=== PATIENT | male | born 1955 | race Caucasian/White ===

== ENCOUNTER 2017-01-06 11:57 | Day surgery (SDC) | payer OTHER ==
[~2017-01-06] VITALS: Ht 175.3 cm; Wt 81.7 kg
[~2017-01-06 11:57] MED LIST: ADVIL,NUPRIN,M200 MG PO; SUBOXONE 8 MG-1 EAC2 SL; TYLENOL EXTRA500 MG PO
== END 2017-01-06 14:00 | disposition home or self-care (01) ==
LOC: PAIN 11:57 → SDC 12:30 → PAIN 14:00
PROC: 3E0S33Z Introduction of Anti-inflammatory into Epidural Space, Percutaneous Approach (ICD-10-PCS; principal; 2017-01-06)
DX: M54.16 Radiculopathy, lumbar region (principal); F41.9 Anxiety disorder, unspecified; M96.1 Postlaminectomy syndrome, not elsewhere classified; M47.816 Spondylosis without myelopathy or radiculopathy, lumbar region; M79.1 Myalgia; F17.200 Nicotine dependence, unspecified, uncomplicated; Z87.898 Personal history of other specified conditions; F11.20 Opioid dependence, uncomplicated
CPT/HCPCS: J1100; J2250; J3010

== ENCOUNTER 2017-02-17 10:03 | Day surgery (SDC) | payer OTHER ==
[~2017-02-17] VITALS: Ht 175.3 cm; Wt 83.9 kg
== END 2017-02-17 11:55 | disposition home or self-care (01) ==
LOC: PAIN 10:03 → SDC 10:30 → PAIN 11:55
PROC: 3E0S33Z Introduction of Anti-inflammatory into Epidural Space, Percutaneous Approach (ICD-10-PCS; principal; 2017-02-17)
DX: M54.16 Radiculopathy, lumbar region (principal); F41.9 Anxiety disorder, unspecified; M96.1 Postlaminectomy syndrome, not elsewhere classified; M79.1 Myalgia; Z79.891 Long term (current) use of opiate analgesic; F17.200 Nicotine dependence, unspecified, uncomplicated
CPT/HCPCS: J1100; J2250; J3010

== ENCOUNTER 2017-09-22 17:22 | Observation (INO) | payer OTHER ==
[~2017-09-22] VITALS: Ht 177.8 cm; Wt 83.7 kg
[2017-09-22 18:05] LABS: HEMATOCRIT 50.3 % (38.0-50.0); MCH 34.5 PG (29.0-34.0); MCHC 36.2 G/DL (30.0-36.0); MCV 95.4 FL (86-99); MEAN PLAT.VOLUME 10.9 uM^3 (9.0-12.4); PLATELET COUNT 208 K/uL (156-360); RBC DIS.WIDTH-CV 12.6 % (11.8-14.6); RBC DIS.WIDTH-SD 44.8 % (39-53); RED BLOOD COUNT 5.27 M/uL (4.00-5.50)
[2017-09-22 18:13] LABS: CHLORIDE 92 mEq/L (99-109); SODIUM 133 mEq/L (136-147)
[2017-09-22 18:15] LABS: GLUCOSE 262 mg/dL (70-99)
[2017-09-22 18:17] LABS: ANION GAP 20 MEQ/L (2-14)
[2017-09-22 18:19] LABS: GFR ESTIMATE (CALCULATED) 38 mL/min/
[2017-09-22 18:20] LABS: UREA NITROGEN (BUN) 26 mg/dL (9-23)
[2017-09-22 18:22] LABS: CREATINE KINASE 870 IU/L (1-294)
[2017-09-22 20:28] LABS: ADD MIUA? YES; BILIRUBIN NEGATIVE; BLOOD NEGATIVE; COLOR AMBER ((YELLOW)); GLUCOSE (STRIP) NEGATIVE; KETONES NEGATIVE; LEUKOCYTES TRACE; NITRITE NEGATIVE; PROTEIN (STRIP) NEGATIVE; SPECIFIC GRAVITY 1.014 (1.000-1.030); UROBILINOGEN 0.2 MG/DL (0.2-1.0)
[2017-09-22 20:37] LABS: BACTERIA RARE /HPF; EPITHELIAL CELLS RARE /HPF; HYALINE CASTS TNTC /LPF; MUCUS 1+ /LPF; RED BLOOD CELLS 0-5 /HPF (0-5); UCUL ADDED? NO; WHITE BLOOD CELLS 0-5 /HPF (0-5)
[2017-09-22 21:36] LABS: CHLORIDE 97 mEq/L (99-109); SODIUM 134 mEq/L (136-147)
[2017-09-22 21:37] LABS: GLUCOSE 179 mg/dL (70-99)
[2017-09-22 21:38] LABS: POTASSIUM 4.1 mEq/L (3.7-5.4)
[2017-09-22 21:39] LABS: ANION GAP 13 MEQ/L (2-14)
[2017-09-22 21:41] LABS: GFR ESTIMATE (CALCULATED) 50 mL/min/
[2017-09-22 21:42] LABS: UREA NITROGEN (BUN) 25 mg/dL (9-23)
[2017-09-22 21:44] LABS: CREATINE KINASE 989 IU/L (1-294)
[2017-09-22] MEDS ORDERED: SUBOXONE 8 MG-1 EAC2 SL (22:19)
[2017-09-22] MEDS ORDERED: TIZANIDINE HCL2 MG PO (22:20)
[2017-09-22 23:05] LABS: TOTAL BILIRUBIN 1.2 mg/dL (0.0-1.0)
[2017-09-22 23:06] LABS: ALKALINE PHOSPHATASE 97 IU/L (3-129)
[2017-09-22 23:09] LABS: DIRECT BILIRUBIN 0.5 mg/dL (0.0-0.3)
[2017-09-22 23:21] LABS: INTERNAL CONTROL VALID? YES; MONOSPOT (MONONUCLEOSIS SEROL) NEGATIVE
[2017-09-22 23:39] LABS: INFLUENZA A VIRAL ANTIGEN NEGATIVE; INFLUENZA B VIRAL ANTIGEN NEGATIVE
[2017-09-23 00:16] LABS: MAGNESIUM 1.5 mg/dL (1.3-2.7)
[2017-09-23 00:23] LABS: URIC ACID 10.4 mg/dL (3.1-9.2)
[2017-09-23 00:30] VITALS: BP 133/79
[2017-09-23 01:21] LABS: C-REACTIVE PROTEIN 2.3 MG/L (0-10); SAMPLE HEMOLYSIS CHECK 0; SAMPLE ICTERIC CHECK 0; SAMPLE LIPEMIA CHECK 0
[2017-09-23 04:34] LABS: UR CREATININE CONCENTRATION 47.9 MG/DL
[2017-09-23 06:15] LABS: ALKALINE PHOSPHATASE 80 IU/L (3-129); ANION GAP 8 MEQ/L (2-14); CHLORIDE 97 MEQ/L (99-109); GFR ESTIMATE (CALCULATED) > 59 mL/min/; GLUCOSE 136 mg/dL (70-99); POTASSIUM 3.9 MEQ/L (3.7-5.4); SAMPLE HEMOLYSIS CHECK 0; SAMPLE ICTERIC CHECK 0; SAMPLE LIPEMIA CHECK 0; SODIUM 136 MEQ/L (136-147); TOTAL BILIRUBIN 1.2 MG/DL (0.0-1.0); UREA NITROGEN (BUN) 22 mg/dL (9-23)
[2017-09-23 06:16] LABS: MAGNESIUM 1.8 mg/dl (1.3-2.7)
[2017-09-23 07:22] VITALS: BP 116/75
[2017-09-23 11:54] VITALS: BP 106/60
[2017-09-23 12:40] LABS: POINT-OF-CARE METER ID UU13113831
[2017-09-23 12:48] LABS: ANION GAP 6 MEQ/L (2-14); CHLORIDE 99 MEQ/L (99-109); GFR ESTIMATE (CALCULATED) > 59 mL/min/; GLUCOSE 128 mg/dL (70-99); SAMPLE HEMOLYSIS CHECK 0; SAMPLE ICTERIC CHECK 0; SAMPLE LIPEMIA CHECK 0; SODIUM 136 MEQ/L (136-147); UREA NITROGEN (BUN) 21 mg/dL (9-23)
[2017-09-23 12:52] LABS: POTASSIUM 4.9 MEQ/L (3.7-5.4)
[2017-09-23 13:29] LABS: Estimated Average Glucose 114 mg/dL (70-123); HEMOGLOBIN A1c (GLYCOHEMOGLOB) 5.6 % HGB (Below 5.7)
[2017-09-23 14:01] LABS: AMPHETAMINES QUANT VALUE 0 NG/ML; BARBITUATES QUANT VALUE 0 NG/ML; BENZODIAZEPINES, URINE SCREEN POSITIVE (200 ng/mL); MARIJUANA QUANT VALUE 0 NG/ML; OPIATES QUANTITATIVE VALUE 0 NG/ML; PHENCYCLIDINE QUANT VALUE 0 NG/ML
== END 2017-09-23 14:03 | disposition home or self-care (01) ==
LOC: EME 17:22 → EDOF 23:08 → ENRESERV 23:09 → 5WEST 09-23 00:28
PROVIDERS: Hospitalist; Physician Assistant; Physician Assistant Medical
DX: M62.82 Rhabdomyolysis (principal); M60.9 Myositis, unspecified; N17.9 Acute kidney failure, unspecified; R73.9 Hyperglycemia, unspecified; Z86.19 Personal history of other infectious and parasitic diseases; F11.20 Opioid dependence, uncomplicated; F17.210 Nicotine dependence, cigarettes, uncomplicated; E86.0 Dehydration; E87.5 Hyperkalemia; E87.6 Hypokalemia; E87.1 Hypo-osmolality and hyponatremia; G89.29 Other chronic pain; M54.12 Radiculopathy, cervical region; M54.16 Radiculopathy, lumbar region
CPT/HCPCS: 76705; 80048; 80048 91; 80053; 80076; 80306 90; 81003; 82436; 82550; 82550 91; 82570; 82575; 82948; 83036; 83735; 83930; 83935; 84100; 84133; 84300; 84550; 85027; 85651; 86140; 86308; 87502; 99281; 99285; G0378; G0480; J0574; J1100; J1650; J3480; J7030

== ENCOUNTER 2017-09-27 12:35 | Observation (INO) | payer OTHER ==
[~2017-09-27] VITALS: Ht 177.8 cm; Wt 85.9 kg
[~2017-09-27 12:35] MED LIST changes: +TIZANIDINE HCL2 MG PO
[2017-09-27 13:53] LABS: BASOPHIL COUNT 0.1 K/uL (0-0.1); EOSINOPHIL (%) 2.6 % (0-5); EOSINOPHIL COUNT 0.2 K/uL (0-0.3); HEMATOCRIT 45.6 % (38.0-50.0); IMMATURE GRANULOCYTE (%) 0.5 % (0.0-0.7); INSTRUMENT ABS NEUTROPHIL CT 4.8 K/uL; LYMPHOCYTE COUNT 2.6 K/uL (1.0-2.8); MCHC 34.9 G/DL (30.0-36.0); MCV 97.4 FL (86-99); MEAN PLAT.VOLUME 10.5 uM^3 (9.0-12.4); MONOCYTE (%) 6.6 % (3-12); MONOCYTE COUNT 0.5 K/uL (0-0.8); NEUTROPHIL (%) 58.2 % (45-76); NEUTROPHIL COUNT 4.8 K/uL (1.8-6.4); PLATELET COUNT 165 K/uL (156-360); RBC DIS.WIDTH-CV 12.5 % (11.8-14.6); RBC DIS.WIDTH-SD 44.5 % (39-53); RED BLOOD COUNT 4.68 M/uL (4.00-5.50); WHITE BLOOD COUNT 8.2 K/uL (4.1-10.2)
[2017-09-27 14:10] LABS: CHLORIDE 97 mEq/L (99-109); POTASSIUM 3.8 mEq/L (3.7-5.4); SODIUM 135 mEq/L (136-147)
[2017-09-27 14:11] LABS: INTER. NORMALIZED RATIO 1.1; PROTHROMBIN TIME 12.5 SEC (10.2-12.9)
[2017-09-27 14:12] LABS: GLUCOSE 108 mg/dL (70-99)
[2017-09-27 14:13] LABS: ANION GAP 9 MEQ/L (2-14)
[2017-09-27 14:14] LABS: PTT 27.9 SEC (25-37); TOTAL BILIRUBIN 1.1 mg/dL (0.0-1.0)
[2017-09-27 14:16] LABS: ALKALINE PHOSPHATASE 100 IU/L (3-129); GFR ESTIMATE (CALCULATED) > 59 mL/min/
[2017-09-27 14:17] LABS: UREA NITROGEN (BUN) 19 mg/dL (9-23)
[2017-09-27 14:20] LABS: CREATINE KINASE 2333 IU/L (1-294)
[2017-09-27 19:56] VITALS: BP 125/79
[2017-09-27 23:15] VITALS: BP 112/55
[2017-09-28 03:01] VITALS: BP 114/67
[2017-09-28 05:38] LABS: HEMATOCRIT 39.4 % (38.0-50.0); MCH 33.2 PG (29.0-34.0); MCHC 33.2 G/DL (30.0-36.0); MCV 99.7 FL (86-99); MEAN PLAT.VOLUME 10.5 uM^3 (9.0-12.4); PLATELET COUNT 137 K/uL (156-360); RBC DIS.WIDTH-CV 12.8 % (11.8-14.6); RBC DIS.WIDTH-SD 47.6 % (39-53); RED BLOOD COUNT 3.95 M/uL (4.00-5.50); WHITE BLOOD COUNT 6.9 K/uL (4.1-10.2)
[2017-09-28 06:05] LABS: ALKALINE PHOSPHATASE 64 IU/L (3-129); ANION GAP 4 MEQ/L (2-14); CHLORIDE 104 MEQ/L (99-109); GFR ESTIMATE (CALCULATED) > 59 mL/min/; GLUCOSE 89 mg/dL (70-99); POTASSIUM 4.1 MEQ/L (3.7-5.4); SAMPLE HEMOLYSIS CHECK 0; SAMPLE ICTERIC CHECK 0; SAMPLE LIPEMIA CHECK 0; SODIUM 140 MEQ/L (136-147); TOTAL BILIRUBIN 1.1 MG/DL (0.0-1.0); UREA NITROGEN (BUN) 17 mg/dL (9-23)
[2017-09-28 08:12] VITALS: BP 122/71
== END 2017-09-28 09:56 | disposition home or self-care (01) ==
LOC: EME 12:35 → 5WEST 15:44 → EDOF 15:44 → ENRESERV 16:14 → 5WEST 19:42
PROVIDERS: Emergency Medicine; Hospitalist
DX: M62.82 Rhabdomyolysis (principal); R74.0 Nonspecific elevation of levels of transaminase and lactic acid dehydrogenase [LDH]; G89.4 Chronic pain syndrome; Z86.19 Personal history of other infectious and parasitic diseases; F17.210 Nicotine dependence, cigarettes, uncomplicated; F19.11 Other psychoactive substance abuse, in remission; Z82.49 Family history of ischemic heart disease and other diseases of the circulatory system; Z82.5 Family history of asthma and other chronic lower respiratory diseases
CPT/HCPCS: 76705; 80053; 82550; 82550 91; 85025; 85027; 85610; 85730; 93005; 99281; 99285; G0378; J0574; J7030; J7040

== ENCOUNTER 2018-01-10 14:46 | Observation (INO) | payer OTHER ==
[~2018-01-10] VITALS: Ht 177.8 cm; Wt 86.0 kg
[2018-01-10 15:46] LABS: HEMATOCRIT 52.7 % (38.0-50.0); HEMOGLOBIN 19.2 G/DL (12.5-16.6); MCH 33.9 PG (29.0-34.0); MCHC 36.4 G/DL (30.0-36.0); MCV 93.1 FL (86-99); PLATELET COUNT 232 K/uL (156-360); RBC DIS.WIDTH-CV 12.2 % (11.8-14.6); RBC DIS.WIDTH-SD 42.2 % (39-53); RED BLOOD COUNT 5.66 M/uL (4.00-5.50); WHITE BLOOD COUNT 9.7 K/uL (4.1-10.2)
[2018-01-10 15:57] LABS: ALBUMIN 4.9 g/dL (3.2-4.8); CHLORIDE 90 mEq/L (99-109); POTASSIUM 3.8 mEq/L (3.7-5.4); SODIUM 134 mEq/L (136-147)
[2018-01-10 15:59] LABS: GLUCOSE 147 mg/dL (70-99); TOTAL PROTEIN 9.4 g/dL (6.4-8.3)
[2018-01-10 16:01] LABS: TOTAL BILIRUBIN 2.1 mg/dL (0.0-1.0)
[2018-01-10 16:03] LABS: ALKALINE PHOSPHATASE 122 IU/L (3-129); CREATININE 1.6 mg/dL (0.6-1.3); GFR ESTIMATE (CALCULATED) 46 mL/min/ (58.99-99999)
[2018-01-10 16:04] LABS: UREA NITROGEN (BUN) 33 mg/dL (9-23)
[2018-01-10 16:05] LABS: AST (GOT) 152 IU/L (2-34)
[2018-01-10 16:06] LABS: ALT (GPT) 137 IU/L (3-49)
[2018-01-10 16:07] LABS: TROP-I INTERPRETATION NEGATIVE; TROPONIN-I < 0.01 ng/mL (0.0-0.30)
[2018-01-10 17:08] LABS: CREATINE KINASE 184 IU/L (1-294); MAGNESIUM 1.7 mg/dl (1.3-2.7); PHOSPHORUS 1.4 mg/dL (2.5-4.9)
[2018-01-10 17:22] LABS: APPEARANCE CLEAR ((CLEAR)); BILIRUBIN NEGATIVE; BLOOD NEGATIVE; COLOR YELLOW ((YELLOW)); GLUCOSE (STRIP) NEGATIVE; KETONES NEGATIVE; LEUKOCYTES NEGATIVE; NITRITE NEGATIVE; PROTEIN (STRIP) NEGATIVE; SPECIFIC GRAVITY 1.008 (1.000-1.030); UCUL ADDED? NO; UROBILINOGEN 0.2 MG/DL (0.2-1.0)
[2018-01-10] MEDS ORDERED: TYLENOL EXTRA500 MG PO (18:23)
[2018-01-10] MEDS ORDERED: SALONPAS GEL-P1 EAC1 TD (18:24)
[2018-01-10 20:47] LABS: INTACT PARATHYROID HORMONE 158 pg/mL (10-69)
[2018-01-10 21:04] VITALS: BP 114/73
[2018-01-10 23:48] VITALS: BP 110/71
[2018-01-11 03:21] LABS: CHLORIDE 96 mEq/L (99-109); POTASSIUM 3.9 mEq/L (3.7-5.4); SODIUM 136 mEq/L (136-147)
[2018-01-11 03:22] LABS: MAGNESIUM 1.7 mg/dL (1.3-2.7)
[2018-01-11 03:23] LABS: GLUCOSE 114 mg/dL (70-99)
[2018-01-11 03:27] LABS: PHOSPHORUS 4.6 mg/dL (2.5-4.9)
[2018-01-11 03:28] LABS: CREATININE 1.1 mg/dL (0.6-1.3); GFR ESTIMATE (CALCULATED) > 59 mL/min/ (58.99-99999); UREA NITROGEN (BUN) 27 mg/dL (9-23)
[2018-01-11 03:32] VITALS: BP 108/54
[2018-01-11 05:28] LABS: BENZODIAZEPINES, URINE SCREEN POSITIVE (200 ng/mL)
[2018-01-11 06:21] LABS: HEMATOCRIT 43.8 % (38.0-50.0); MCH 33.1 PG (29.0-34.0); MCHC 34.2 G/DL (30.0-36.0); MCV 96.7 FL (86-99); RBC DIS.WIDTH-CV 12.5 % (11.8-14.6); RBC DIS.WIDTH-SD 44.6 % (39-53); WHITE BLOOD COUNT 10.2 K/uL (4.1-10.2)
[2018-01-11 06:35] LABS: ALBUMIN 3.5 G/DL (3.2-4.8); ALKALINE PHOSPHATASE 72 IU/L (3-129); ALT (GPT) 73 IU/L (3-49); AST (GOT) 75 IU/L (2-34); CHLORIDE 97 MEQ/L (99-109); DIRECT BILIRUBIN 0.6 mg/dL (0.0-0.3); GFR ESTIMATE (CALCULATED) > 59 mL/min/ (58.99-99999); GLUCOSE 110 mg/dL (70-99); POTASSIUM 3.5 MEQ/L (3.7-5.4); SODIUM 137 MEQ/L (136-147); TOTAL BILIRUBIN 1.5 MG/DL (0.0-1.0); TOTAL PROTEIN 5.9 G/DL (6.4-8.3); UREA NITROGEN (BUN) 26 mg/dL (9-23)
[2018-01-11 07:05] LABS: PLATELET COUNT 159 K/uL (156-360); RED BLOOD COUNT 4.53 M/uL (4.00-5.50)
[2018-01-11 07:22] LABS: PLAT.SUFFICIENCY DECREASED
[2018-01-11 08:00] VITALS: BP 104/69
[2018-01-11 11:43] VITALS: BP 111/64
== END 2018-01-11 14:19 | disposition home or self-care (01) ==
LOC: EME 14:46 → 5SOUTH 18:46 → EDOF 18:46 → 5SOUTH 18:46 → ENRESERV 18:51 → 5SOUTH 20:53
PROVIDERS: Emergency Medicine; Hospitalist; Physician Assistant
DX: E86.0 Dehydration (principal); E87.6 Hypokalemia; E83.52 Hypercalcemia; E83.39 Other disorders of phosphorus metabolism; N17.9 Acute kidney failure, unspecified; G89.4 Chronic pain syndrome; B18.2 Chronic viral hepatitis C; R79.89 Other specified abnormal findings of blood chemistry; G62.9 Polyneuropathy, unspecified; M47.9 Spondylosis, unspecified; D75.1 Secondary polycythemia; F17.200 Nicotine dependence, unspecified, uncomplicated
CPT/HCPCS: 74176; 80048; 80048 91; 80053; 80076; 80306 90; 81003; 82306; 82550; 83605; 83735; 83970; 84100; 84443; 84484; 85027; 93005; 99281; 99285; G0378; J0574; J1650; J2405; J7030; J7050